=== PATIENT | male | born 1975 | race Caucasian/White ===

== ENCOUNTER 2017-09-24 00:50 | Emergency (ER) | payer MEDICAID ==
[~2017-09-24] VITALS: Ht 185.4 cm; Wt 81.6 kg
[2017-09-24 00:54] VITALS: BP 111/75
--- NOTE | 2017-09-24 00:56 | NUR ---
PATIENT BIB [facility]ICE DEPT. FOR MEDICAL CLEARANCE BEFORE BOOKING. PT DENIES ANY PAIN, NO N/V/D, SOB, CP AT THE MOMENT. PT ARRIVED IN HANDCUFFS. [facility] PD AT BEDSIDE. ER MD MADE AWARE.
--- NOTE | 2017-09-24 01:10 | NUR ---
Patient being evaluated by physician at bedside.
[2017-09-24 01:12] VITALS: BP 117/81
--- NOTE | 2017-09-24 01:13 | NUR ---
PATIENT EXAMINED BY DR. BELL. PATIENT MEDICALLY CLEARED AND RELEASED IN CUSTODY IN STABLE CONDITION. ORIGINAL PRE-BOOK FORM GIVEN TO OFFICER RYAN.
--- NOTE | 2017-09-24 01:14 | NUR ---
Patient discharged with v/s stable. Written and verbal after care instructions given and explained. Patient verbalized understanding. Police with in custody. All questions addressed prior to discharge. Advised to follow up with PMD.
== END 2017-09-24 01:14 ==
LOC: MED 00:50
DX: Z02.89 Encounter for other administrative examinations (principal); F41.9 Anxiety disorder, unspecified; I10 Essential (primary) hypertension; F12.10 Cannabis abuse, uncomplicated
CPT/HCPCS: 99283